=== PATIENT | male | born 1955 | race Native Hawaiian/Other Pacific Islander ===

== ENCOUNTER 2017-10-21 13:18 | Outpatient (CLI) | payer BC ==
[2017-10-21 13:32] LABS: PLATELET COUNT 259 K/uL (142-355)
[2017-10-21 14:03] LABS: POTASSIUM 4.7 mmol/L (3.6-5.2)
== END 2017-10-21 23:49 | disposition home or self-care (01) ==
LOC: LAB 13:18
PROVIDERS: Internal Medicine
DX: Z00.00 Encounter for general adult medical examination without abnormal findings (principal); Z12.5 Encounter for screening for malignant neoplasm of prostate
CPT/HCPCS: 36415; 80053; 80061; 81000; 84153; 84443; 85027